=== PATIENT | male | born 1995 | race Two or more races ===

== ENCOUNTER 2022-08-18 21:56 | Emergency (ER) | payer SELFPAY ==
[~2022-08-18] VITALS: Ht 170.2 cm; Wt 77.1 kg
--- NOTE | 2022-08-18 22:10 | NUR ---
TO ER BED 13. [id number] FOR ETOH. PT IS ALERT, INTOXICATED. SAFETY PRECAUTIONS IN PLACE. CONNECTED TO MONITOR. RR EVEN AND NON LABORED. PT DENIES ANY DISCOMFORT AT THIS TIME. SITTER WITHIN SIGHT. WILL CONTINUE TO MONITOR
--- NOTE | 2022-08-18 23:50 | NUR ---
Patient discharged to home in stable condition. Written and verbal after care instructions given. Patient verbalizes understanding of instruction.
[2022-08-19 00:21] VITALS: BP 128/71
== END 2022-08-19 00:21 | disposition home or self-care (01) ==
LOC: ER 21:59
DX: F10.129 Alcohol abuse with intoxication, unspecified (principal); Y90.9 Presence of alcohol in blood, level not specified
CPT/HCPCS: 82962-TC